=== PATIENT | female | born 1950 | race Caucasian/White ===

== ENCOUNTER 2018-09-11 13:05 | Emergency (ER) | payer OTHER ==
[~2018-09-11] VITALS: Ht 149.9 cm; Wt 47.6 kg
[~2018-09-11 13:05] MED LIST: CLONAZEPAM0.5 MG; COZAAR25 MG; PROTONIX IV40 MG
== END 2018-09-11 15:21 | disposition home or self-care (01) ==
LOC: ER 13:05
DX: M54.5 Low back pain (principal)